=== PATIENT | male | born 1975 | race African-American/Black ===

== ENCOUNTER 2018-03-14 01:41 | Emergency (ER) | payer OTHER ==
[~2018-03-14] VITALS: Ht 175.3 cm; Wt 65.8 kg
== END 2018-03-14 03:13 | disposition home or self-care (01) ==
LOC: ER 01:41
DX: S01.01XA Laceration without foreign body of scalp, initial encounter (principal); Y04.8XXA Assault by other bodily force, initial encounter; Y93.89 Activity, other specified; Y92.89 Other specified places as the place of occurrence of the external cause; Y99.8 Other external cause status

== ENCOUNTER 2018-08-05 03:08 | Emergency (ER) | payer OTHER ==
[~2018-08-05] VITALS: Ht 172.7 cm; Wt 76.2 kg
[2018-08-05 03:47] LABS: HEMOGLOBIN 9.6 gm/dL (14.0-18.0)
[2018-08-05 03:51] LABS: HEMATOCRIT 30.4 % (42.0-52.0); MCH 22.6 pg (26.0-34.0); MCHC 31.6 g/dL (28.0-37.0); MCV 71.5 fL (80.0-100.0); PLATELET COUNT 329 thou/uL (150-400); RBC 4.25 mil/uL (4.50-6.00); RDW 25.6 % (10.5-14.5); WBC 3.6 thou/uL (4.0-11.0)
[2018-08-05 03:53] LABS: CALCIUM 8.1 mg/dL (8.5-10.1); CREATININE 1.1 mg/dL (0.7-1.3); POTASSIUM 3.7 mmol/L (3.5-5.1)
[2018-08-05 03:58] LABS: ALBUMIN 3.2 g/dL (3.4-5.0); TOTAL BILIRUBIN 0.5 mg/dL (<0.1-1.0); TOTAL PROTEIN 7.9 g/dL (6.4-8.2)
[2018-08-05 04:13] VITALS: BP 104/58
[2018-08-05 04:22] LABS: ABSOLUTE NEUTROPHILS 2.1 thou/uL (1.4-8.2)
[2018-08-05 04:23] LABS: PLATELET ESTIMATE NORMAL
[2018-08-05 04:24] LABS: ANISOCYTOSIS 3+; HYPOCHROMASIA 2+; MICROCYTES 1+; TARGET CELLS 1+
== END 2018-08-05 04:56 | disposition home or self-care (01) ==
LOC: ER 03:08
PROVIDERS: Student in an Organized Health Care Education/Training Program
DX: F10.10 Alcohol abuse, uncomplicated (principal); D50.9 Iron deficiency anemia, unspecified; I10 Essential (primary) hypertension; E11.9 Type 2 diabetes mellitus without complications

== ENCOUNTER 2018-08-07 03:00 | Emergency (ER) | payer OTHER ==
[~2018-08-07] VITALS: Ht 172.7 cm; Wt 76.2 kg
[2018-08-07 03:44] VITALS: BP 103/56
== END 2018-08-07 03:46 | disposition home or self-care (01) ==
LOC: ER 03:00
DX: F10.129 Alcohol abuse with intoxication, unspecified (principal); I10 Essential (primary) hypertension; E11.9 Type 2 diabetes mellitus without complications; F17.210 Nicotine dependence, cigarettes, uncomplicated